=== PATIENT | male | born 1950 | race Caucasian/White ===

== ENCOUNTER 2025-06-21 06:52 | Day surgery (SDC) | payer MEDICARE, BC ==
[2025-06-20 09:33] VITALS: BMI 26.6
[~2025-06-21 06:52] MED LIST: EPINEPHrine 0.3 MG in Ophthalmic Irrigation Solution 500 ML IRR SCH
[2025-06-21] MEDS ORDERED: Cyclopentolate 1% Opth Drop 2 ML BOT ONE (07:20)
[2025-06-21] MEDS ORDERED: Lidocaine 1% PF 5 ML VIAL ONE (08:47)
[2025-06-21] MEDS ORDERED: PROPOFOL 200 MG/20 ML VIAL ONE (08:47)
[2025-06-21] MEDS ORDERED: Glycopyrrolate 0.2 MG/ML 5 ML SYRINGE ONE (08:47)
[2025-06-21] MEDS ORDERED: Maxitrol 0.1% Opth Oint 3.5 GM TUBE ONE (08:47)
[2025-06-21] MEDS ORDERED: Lidocaine 4% PF 5 ML AMP ONE (08:47)
== END 2025-06-21 11:08 | disposition home or self-care (01) ==
LOC: SDC 06:52
PROVIDERS: ATTEND Ophthalmology Retina Specialist
PROC: 08T43ZZ Resection of Right Vitreous, Percutaneous Approach (ICD-10-PCS; principal; 2025-06-21)
PROC: 08NE3ZZ Release Right Retina, Percutaneous Approach (ICD-10-PCS; 2025-06-21)
DX: H35.371 Puckering of macula, right eye (principal)
CPT/HCPCS: 67041; J0166; J2704; J3301; J3490